=== PATIENT | female | born 1955 | race Hispanic/Latino ===

== ENCOUNTER 2017-01-04 09:43 | Emergency (ER) | payer OTHER ==
[2017-01-04 09:47] VITALS: PULSE 60; RESP 20; TEMP 98.6; O2SAT 99; BMI 23.5
--- NOTE | 2017-01-04 10:51 | ED PDOC ---
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 States as she attempted to lift pt. towards the head of the bed she immediately felt pain in the R shoulder. Pt. states she has been doing a lot more heavy lifting at work as she has been working in the orthopedic floor. Further states approximately 5-6 years ago she had the same pain and was diagnosed as having tendonitis. Pt. requried several months of physical therapy. Pt. took Motrin yesterday afternoon and placed lidoderm patch this morning. Reports pain is worsened with flexion of shoulder. Pain radiates down to the upper arm. Denies chest pain, fever, blunt trauma, SOB, palpitations, neck pain. Past Medical History Reviewed: Historical Data, Nursing Documentation, Vital Signs Vital Signs: Last Vital Signs Temp 98.6 F 01/04/17 09:46 Pulse 60 01/04/17 09:46 Resp 20 01/04/17 09:46 BP 173/54 H 01/04/17 09:46 Pulse Ox 99 01/04/17 10:52 - Medical History PMH: HTN Denies: Chronic Kidney Disease - Family History Family History: States: No Known Family Hx - Immunization History Hx Tetanus Toxoid Vaccination: (unknown) - Home Medications Home Medications: Ambulatory Orders Medication Instructions Recorded Irbesartan [Avapro] 1 tab PO DAILY 01/06/15 Lidocaine 5% [Lidoderm] 1 ea TD DAILY PRN #15 patch 01/04/17 Meloxicam [Mobic] 7.5 mg PO DAILY PRN #30 tab 01/04/17 - Allergies Allergies/Adverse Reactions: Allergies Allergy/AdvReac Type Severity Reaction Status Date / Time No Known Allergies Allergy Verified 01/04/17 10:08 Review of Systems ROS Statement: Except As Marked, All Systems Reviewed And Found Negative Musculoskeletal: Positive for: Shoulder Pain Physical Exam - Physical Exam Appears: Positive for: Well, Non-toxic, No Acute Distress Skin: Positive for: Normal Color, Warm. Negative for: Rash Eye Exam: Positive for: Normal appearance Pulses-Radial (L): 2+ Pulses-Radial (R): 2+ Extremity: Positive for: Other (R lateral shoulder tenderness without deformity ; equal onboarding specialist strength b/l; limited ROM secondary to pain) Neurologic/Psych: Positive for: Alert, Oriented - ECG O2 Sat by Pulse Oximetry: 99 - Radiology X-Ray: Interpreted by Me (R shoulder x-ray) X-Ray Interpretation: Other (calcific tendonitis; no fx or dislocation) - Progress ED Course And Treament: R shoulder x-ray ordered. Toradol 30mg IM ordered. Shoulder sling ordered. Disposition - Clinical Impression Clinical Impression: Shoulder tendonitis - Patient ED Disposition Is Patient to be Admitted: No - Disposition Referrals: Andrey Davies MD [Family Provider] - Musa Alonso MD [Staff Provider] - [facility] [Outside] Disposition: Routine/Home Disposition Time: 10:56 Condition: STABLE Prescriptions: Lidocaine 5% [Lidoderm] 1 ea TD DAILY PRN #15 patch PRN Reason: pain Meloxicam [Mobic] 7.5 mg PO DAILY PRN #30 tab PRN Reason: Pain Instructions: Calcific Tendinitis (ED) Forms: [employer] (Macedonian), [facility] ED School/Work Excuse
--- NOTE | 2017-01-04 11:06 | RAD ---
PROCEDURE: Radiographs of the Right Shoulder HISTORY: pain COMPARISON: No prior. FINDINGS: BONES: No fracture. JOINTS: The glenohumeral joint appears grossly normal. Acromio- clavicular joint space narrowing with osseous hypertrophy -arthrosis SOFT TISSUES: On the internally rotated view, a 3 x 5 mm calcification over the humeral head tuberosities is suggested calcific tendinopathy is inferred. Calcific bursitis is not excluded but this is believe less likely. OTHER FINDINGS: None. IMPRESSION: No fracture or lytic lesion. Calcific rotator cuff tendinopathy. Acromioclavicular joint hypertrophic arthrosis
[2017-01-04 11:17] VITALS: BP 166/75
== END 2017-01-04 11:30 | disposition home or self-care (01) ==
LOC: H.ER 09:43
DX: M25.511 Pain in right shoulder (principal); X50.9XXA Other and unspecified overexertion or strenuous movements or postures, initial encounter; Y99.0 Civilian activity done for income or pay; M75.80 Other shoulder lesions, unspecified shoulder; I10 Essential (primary) hypertension
CPT/HCPCS: 73030; 96372; 99284; J1885